=== PATIENT | female | born 1960 | race Caucasian/White ===

== ENCOUNTER 2017-02-03 08:56 | Emergency (ER) | payer BC ==
[2017-02-03] MEDS ORDERED: Sodium Chloride 0.9% 10 ML Syringe FLUSH PRN (09:22)
[2017-02-03] MEDS ORDERED: Ondansetron 4 MG/2 ML SDV IVPUSH ONE (09:31)
[2017-02-03] MEDS ORDERED: Sodium Chloride 0.9% 1,000 ML IV SCH (09:45)
--- NOTE | 2017-02-03 10:01 | EDM.PDOC ---
ED HPI GENERAL MEDICAL PROBLEM - General Chief Complaint: Chest Pain Stated Complaint: SHAKY/UPSET STOMACH Time Seen by Provider: 02/03/17 09:19 Source of Information: Reports: Patient, RN Notes Reviewed - History of Present Illness INITIAL COMMENTS - FREE TEXT/NARRATIVE: 56-year-old lady presents to ED with mild chest discomfort, nausea, generalized weakness and dizziness. Onset of these symptoms shortly after awakening this morning. He feels somewhat lightheaded and dizzy when standing. Tenderness to feel nauseated. There's been no vomiting. Tightness across her chest without radiation. She was out in the heat some yesterday morning and last evening. She was not out during the hottest part of the day. Does feel somewhat dry this morning. She does have history of hypothyroidism, acid reflux. She denies history for coronary artery disease hypertension or diabetes. There is heart trouble in her family. Right Chest Pain Score (Numeric/FACES): 1 - Related Data Allergies Allergy/AdvReac Type Severity Reaction Status Date / Time cat dander Allergy Sneezing Verified 02/03/17 09:15 Home Meds: Home Meds Biotin 10,000 mcg PO DAILY 05/23/14 [History] Multivitamin [Multi-Vitamin Daily] 1 tab PO DAILY 05/23/14 [History] Cholecalciferol (Vitamin D3) [Vitamin D3] 5,000 unit PO DAILY 07/06/15 [History] Cyanocobalamin/FA/Pyridoxine [Folbee] 1 tab PO MOWEFR 07/06/15 [History] Levothyroxine 75 mcg PO DAILY 07/06/15 [History] Sertraline [Zoloft] 50 mg PO DAILY 07/06/15 [History] Esomeprazole [NexIUM] 40 mg PO ACBREAKFAST 08/18/16 [History] Zolpidem [Ambien] 10 mg PO BEDTIME PRN 08/18/16 [History] Calcium Citrate/Vitamin D3 [Calcium Citrate + D] 600 mg PO DAILY 02/03/17 [ History] buPROPion [Wellbutrin XL] 150 mg PO DAILY 02/03/17 [History] Past Medical History HEENT History: Reports: Impaired Vision Other HEENT History: wears contacts. Cardiovascular History: Reports: High Cholesterol Other Cardiovascular History: not on med. 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 Psychiatric History: Reports: Depression Endocrine/Metabolic History: Reports: Hypothyroidism Hematologic History: Reports: Anemia, Iron Deficiency Dermatologic History: Reports: Eczema - Infectious Disease History Infectious Disease History: Reports: Chicken Pox, Measles, Mumps - Past Surgical History GI Surgical History: Reports: Bariatric Procedure Other GI Surgeries/Procedures: gastric bypass Social & Family History - Family History Family Medical History: Noncontributory - Tobacco Use Smoking Status *Q: Never Smoker Years of Tobacco use: 1 Packs/Tins Daily: 0.3 Second Hand Smoke Exposure: No - Caffeine Use Caffeine Use: Reports: None - Alcohol Use Days Per Week of Alcohol Use: 0 - Recreational Drug Use Recreational Drug Use: No ED ROS GENERAL - Review of Systems Review Of Systems: See Below Constitutional: Denies: Fever, Chills, Diaphoresis HEENT: Denies: Sinus Problem, Throat Pain, Vertigo, Vision Change Respiratory: Denies: Shortness of Breath Cardiovascular: Reports: Chest Pain (Slight tightness across her mid chest), Lightheadedness. Denies: Syncope GI/Abdominal: Reports: Nausea. Denies: Abdominal Pain, Diarrhea, Vomiting : Reports: No Symptoms Musculoskeletal: Denies: Neck Pain, Shoulder Pain, Arm Pain Skin: Reports: No Symptoms Neurological: Reports: Dizziness. Denies: Numbness, Tingling, Trouble Speaking , Difficulty Walking ED EXAM, GENERAL - Physical Exam Exam: See Below General Appearance: Alert, Mild Distress Eye Exam: Bilateral Eye: PERRL Throat/Mouth: Normal Inspection, Other Head: No: Facial Swelling (Oral mucosa mildly dry) Neck: Supple, Full Range of Motion Respiratory/Chest: No Respiratory Distress, Lungs Clear, Normal Breath Sounds Cardiovascular: Regular Rate, Rhythm GI/Abdominal: Soft, Non-Tender Back Exam: No: CVA Tenderness (L), CVA Tenderness (R) Extremities: Normal Inspection, Normal Range of Motion. No: Pedal Edema, Leg Pain Neurological: Alert, Oriented, No Motor/Sensory Deficits Skin Exam: Warm, Dry, Normal Color EKG INTERPRETATION EKG Date: 02/03/17 Rhythm: NSR [place]: Normal P-Wave: Present QRS: Normal ST-T: Normal Course - Vital Signs Last Recorded V/S: Last Vital Signs Temp 97.7 F 02/03/17 09:05 Pulse 62 02/03/17 09:05 Resp 16 02/03/17 09:05 BP 144/88 H 02/03/17 09:05 Pulse Ox 100 02/03/17 09:05 Orthostatic Blood Pressure [ 154/91 Standing] Orthostatic Blood Pressure [ 142/88 Sitting] Orthostatic Blood Pressure [ 144/88 Supine] - Orders/Labs/Meds Orders: Active Orders 24 hr Category Date Time Status EKG 12 Lead [EKG Documentation Completion] [] STAT Care 02/03/17 09:22 Active Peripheral IV Care [] . DIRECTED Care 02/03/17 09:23 Active Sodium Chloride 0.9% [Normal Saline] 1,000 ml Med 02/03/17 09:45 Active IV ONETIME Sodium Chloride 0.9% [Saline Flush] Med 02/03/17 09:22 Active 10 ml FLUSH ASDIRECTED PRN Peripheral IV Insertion Adult [OM.PC] Stat Oth 02/03/17 09:23 Ordered Medication Orders Sodium Chloride (Normal Saline) 1,000 mls @ 999 mls/hr IV ONETIME YEMI Last Admin: 02/03/17 09:53 Dose: 999 mls/hr Sodium Chloride (Saline Flush) 10 ml FLUSH ASDIRECTED PRN PRN Reason: Keep Vein Open Last Admin: 02/03/17 09:35 Dose: 10 ml Labs: Laboratory Tests 02/03/17 02/03/17 02/03/17 Range/Units 09:22 09:35 11:15 WBC 5.64 (3.98-10.04) K/mm3 RBC 4.59 (3.98-5.22) M/mm3 Hgb 13.3 (11.2-15.7) gm/L Hct 40.6 (34.1-44.9) % MCV 88.5 (79.4-94.8) fl MCH 29.0 (25.6-32.2) pg MCHC 32.8 (32.2-35.5) g/dl RDW Std Deviation 43.3 (36.4-46.3) fL Plt Count 328 (182-369) K/mm3 MPV 8.5 L (9.4-12.3) fl Neut % (Auto) 64.2 (34.0-71.1) % Lymph % (Auto) 22.9 (19.3-51.7) % [place] % (Auto) 9.9 (4.7-12.5) % Eos % (Auto) 2.1 (0.7-5.8) Baso % (Auto) 0.7 (0.1-1.2) % Neut # (Auto) 3.62 (1.56-6.13) K/mm3 Lymph # (Auto) 1.29 (1.18-3.74) K/mm3 [place] # (Auto) 0.56 H (0.24-0.36) K/mm3 Eos # (Auto) 0.12 (0.04-0.36) K/mm3 Baso # (Auto) 0.04 (0.01-0.08) K/mm3 Sodium 140 (136-145) mEq/L Potassium 3.9 (3.5-5.1) mEq/L Chloride 103 (98-107) mEq/L Carbon Dioxide 27 (21-32) mEq/L Anion Gap 13.9 (5-15) BUN 18 (7-18) mg/dL Creatinine 0.9 (0.55-1.02) mg/dL Est Cr Clr Drug Dosing 71.25 mL/min Estimated GFR (MDRD) > 60 (>60) mL/min BUN/Creatinine Ratio 20.0 H (14-18) Glucose 99 (74-106) mg/dL Calcium 9.4 (8.5-10.1) mg/dL Total Bilirubin 0.5 (0.2-1.0) mg/dL AST 28 (15-37) U/L ALT 45 (14-59) U/L Alkaline Phosphatase 88 (46-116) U/L Troponin I < 0.017 < 0.017 (0.00-0.056) ng/mL Total Protein 7.1 (6.4-8.2) g/dl Albumin 3.8 (3.4-5.0) g/dl Globulin 3.3 gm/dL Albumin/Globulin Ratio 1.2 (1-2) Meds: Medications Generic Name Dose Route Start Last Admin Trade Name Freq PRN Reason Stop Dose Admin Sodium Chloride 1,000 mls @ 999 mls/hr 02/03/17 09:45 02/03/17 09:53 Normal Saline IV 999 mls/hr ONETIME YEMI Administration Sodium Chloride 10 ml 02/03/17 09:22 02/03/17 09:35 Saline Flush FLUSH 10 ml ASDIRECTED PRN Administration Keep Vein Open Discontinued Medications Generic Name Dose Route Start Last Admin Trade Name Nikki PRN Reason Stop Dose Admin Ondansetron HCl 4 mg 02/03/17 09:31 02/03/17 09:53 Zofran IVPUSH 02/03/17 09:32 4 mg ONETIME ONE Administration - Re-Assessments/Exams Free Text/Narrative Re-Assessment/Exam: 02/03/17 12:59 First troponin did come back negative. She was feeling much better after a liter of IV fluid, some Zofran and some time. We did do a second 2 hour troponin just to be safe and that also did come back negative. Her EKG did not show any acute findings. He did have occasional PVCs on a radiographer cardiac catheterization. She states she does have history of "irregular heartbeat" On further Questioning her further she states the chest pain she had is very minimal. Or the nausea dizziness and just not feeling well and then the mild chest discomfort that made her come in. Discharge instructions as documented Departure - Departure Time of Disposition: 12:09 Disposition: Home, Self-Care 01 Condition: Fair Clinical Impression: Atypical chest pain, Dizziness Instructions: Nonspecific Chest Pain, [id number], Dizziness Referrals: Coco Toscano MD [Primary Care Provider] - Forms: ED Department Discharge Additional Instructions: Rest, clear liquids recommended for the next 1-2 hours, then advance diet carefully as tolerated, followup clinic as needed, return to ED if symptoms worsening in any way - My Orders Last 24 Hours: My Active Orders 02/03/17 09:22 EKG 12 Lead [EKG Documentation Completion] [RC] STAT Sodium Chloride 0.9% [Saline Flush] 10 ml FLUSH ASDIRECTED PRN 02/03/17 09:23 Peripheral IV Care [RC] . DIRECTED Peripheral IV Insertion Adult [OM.PC] Stat 02/03/17 09:45 Sodium Chloride 0.9% [Normal Saline] 1,000 ml IV ONETIME - Assessment/Plan Last 24 Hours: My Active Orders 02/03/17 09:22 EKG 12 Lead [EKG Documentation Completion] [RC] STAT Sodium Chloride 0.9% [Saline Flush] 10 ml FLUSH ASDIRECTED PRN 02/03/17 09:23 Peripheral IV Care [RC] . DIRECTED Peripheral IV Insertion Adult [OM.PC] Stat 02/03/17 09:45 Sodium Chloride 0.9% [Normal Saline] 1,000 ml IV ONETIME
[2017-02-03 13:01] VITALS: BP 117/69
== END 2017-02-03 12:35 | disposition home or self-care (01) ==
LOC: JD.ED 08:56
DX: R07.89 Other chest pain (principal); R42 Dizziness and giddiness; E78.00 Pure hypercholesterolemia, unspecified; K21.9 Gastro-esophageal reflux disease without esophagitis; F32.9 Major depressive disorder, single episode, unspecified; E03.9 Hypothyroidism, unspecified; Z86.2 Personal history of diseases of the blood and blood-forming organs and certain disorders involving the immune mechanism; Z79.899 Other long term (current) drug therapy
CPT/HCPCS: 36415; 80053; 84484; 85025; 93005; 96361; 96374; 99285; J2405; J7040; J7050; 99284

== ENCOUNTER 2018-04-20 20:12 | Emergency (ER) | payer BC ==
[2018-04-20 20:21] VITALS: BP 150/99
[2018-04-20] MEDS ORDERED: Ondansetron 4 MG/2 ML SDV IVPUSH ONE (20:46)
[2018-04-20] MEDS ORDERED: HYDROmorphone 0.5 MG/0.5 ML SYRINGE IVPUSH ONE ×2 (20:46→21:42)
[2018-04-20] MEDS ORDERED: Sodium Chloride 0.9% 1,000 ML IV ONE (20:46)
--- NOTE | 2018-04-20 20:56 | EDM.PDOC ---
ED HPI GENERAL MEDICAL PROBLEM - General Chief Complaint: Abdominal Pain Stated Complaint: LOWER ABDOMINAL PAIN Time Seen by Provider: 04/20/18 20:36 Source of Information: Reports: Patient History Limitations: Reports: No Limitations - History of Present Illness INITIAL COMMENTS - FREE TEXT/NARRATIVE: Patient is a 57-year-old female who presents to the ED complaining of right lower quadrant abdominal pain that started approximately 3:00 today. Initially she thought this was related to gas. Took 2 Gas-X pills and tylenol with no relief. Pain came back at approximately 5:00 this afternoon and she took 2 Dulcolax tabs thinking she maybe constipated. Over the past few hours the pain has worsened. Pain is described as being sharp, localized with no radiation. She is mildly nauseated. States pain increases with sitting. Relief with standing. She does not feel bloated. She's had a bowel movement today described as formed soft with no blood present. Denies any increased flatulence. There is no increased pain with urination. No increased frequency, decrease amount. No history kidney stones. She has no history constipation. She still has her appendix in place. Only surgery she's had is tubal ligation. Patient last ate at 5:00. Right Lower Abdomen Pain Score (Numeric/FACES): 9 - Related Data Allergies Allergy/AdvReac Type Severity Reaction Status Date / Time cat dander Allergy Sneezing Verified 02/03/17 09:15 Home Meds: Home Meds Cholecalciferol (Vitamin D3) [Vitamin D3] 5,000 unit PO DAILY 07/06/15 [History] Cyanocobalamin/Folic AC/Vit B6 [Folbee] 800 mcg PO DAILY 07/06/15 [History] Levothyroxine 88 mcg PO DAILY 07/06/15 [History] Esomeprazole [NexIUM] 40 mg PO ACBREAKFAST 08/18/16 [History] Zolpidem [Ambien] 10 mg PO BEDTIME PRN 08/18/16 [History] Calcium Citrate/Vitamin D3 [Calcium Citrate + D] 600 mg PO DAILY 02/03/17 [ History] Iron 1 tab PO DAILY 04/20/18 [History] Tamsulosin HCl [Flomax] 0.4 mg PO QAM #7 cap.er.24h 04/20/18 [Rx] Vitamin B Complex 1 vaporole PO MOWEFR 04/20/18 [History] Past Medical History HEENT History: Reports: Impaired Vision Other HEENT History: wears contacts. Cardiovascular History: Reports: High Cholesterol Other Cardiovascular History: not on med. 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 Psychiatric History: Reports: Depression Endocrine/Metabolic History: Reports: Hypothyroidism Hematologic History: Reports: Anemia, Iron Deficiency Dermatologic History: Reports: Eczema - Infectious Disease History Infectious Disease History: Reports: Chicken Pox, Measles, Mumps - Past Surgical History GI Surgical History: Reports: Bariatric Procedure Other GI Surgeries/Procedures: gastric bypass Social & Family History - Family History Family Medical History: Noncontributory - Tobacco Use Smoking Status *Q: Never Smoker - Caffeine Use Caffeine Use: Reports: Coffee, Tea - Recreational Drug Use Recreational Drug Use: No ED ROS GENERAL - Review of Systems Review Of Systems: See Below Constitutional: Reports: Decreased Appetite. Denies: Fever, Chills HEENT: Reports: No Symptoms Respiratory: Reports: No Symptoms Cardiovascular: Reports: No Symptoms GI/Abdominal: Reports: Abdominal Pain, Decreased Appetite, Nausea. Denies: Black Stool, Bloody Stool, Constipation, Diarrhea, Distension, Flatus, Hematemesis, Vomiting Musculoskeletal: Reports: No Symptoms Skin: Reports: No Symptoms Neurological: Reports: No Symptoms ED EXAM, GI/ABD - Physical Exam Exam: See Below Exam Limited By: No Limitations General Appearance: Alert, WD/WN, Mild Distress Ears: Hearing Grossly Normal Nose: Normal Inspection Throat/Mouth: Normal Voice, No Airway Compromise Neck: Normal Inspection, Supple Respiratory/Chest: No Respiratory Distress, Lungs Clear, Normal Breath Sounds, No Accessory Muscle Use, Chest Non-Tender Cardiovascular: Normal Peripheral Pulses, Regular Rate, Rhythm, No Murmur GI/Abdominal Exam: Normal Bowel Sounds, No Organomegaly, No Distention, Tender ( McBurney's point), Abnormal Bowel Sounds Back Exam: Normal Inspection. No: CVA Tenderness (L), CVA Tenderness (R) Extremities: Normal Inspection Neurological: Alert, Oriented, CN II-XII Intact, Normal Cognition, No Motor/ Sensory Deficits Psychiatric: Normal Affect, Normal Mood Skin Exam: Warm, Dry, Intact, Normal Color, No Rash Course - Vital Signs Last Recorded V/S: Last Vital Signs Temp 98.6 F 04/20/18 20:19 Pulse 61 04/20/18 20:19 Resp 20 04/20/18 20:19 BP 150/99 H 04/20/18 20:19 Pulse Ox 100 04/20/18 20:19 - Orders/Labs/Meds Orders: Active Orders 24 hr Category Date Time Status Abdomen Pelvis w Cont [CT] Stat Exams 04/20/18 20:46 Taken CULTURE URINE [RM] Stat Lab 04/20/18 20:55 Received Sodium Chloride 0.9% [Normal Saline] 1,000 ml Med 04/20/18 20:46 Active IV ONETIME Tamsulosin [Flomax] Med 04/20/18 23:13 Once 0.4 mg PO ONETIME ONE Medication Orders Sodium Chloride (Normal Saline) 1,000 mls @ 250 mls/hr IV ONETIME ONE Stop: 04/21/18 00:45 Last Admin: 04/20/18 21:01 Dose: 250 mls/hr Labs: Laboratory Tests 04/20/18 04/20/18 04/20/18 Range/Units 20:06 20:06 20:55 WBC 9.10 (3.98-10.04) K/mm3 RBC 4.49 (3.98-5.22) M/mm3 Hgb 14.2 (11.2-15.7) gm/L Hct 42.2 (34.1-44.9) % MCV 94.0 (79.4-94.8) fl MCH 31.6 (25.6-32.2) pg MCHC 33.6 (32.2-35.5) g/dl RDW Std Deviation 41.3 (36.4-46.3) fL Plt Count 332 (182-369) K/mm3 MPV 9.3 L (9.4-12.3) fl Neutrophils % (Manual) 39 L (40-60) % Band Neutrophils % 0 (0-10) % Lymphocytes % (Manual) 58 H (20-40) % Atypical Lymphs % 0 % Monocytes % (Manual) 3 (2-10) % Eosinophils % (Manual) 0 L (0.7-5.8) % Basophils % (Manual) 0 L (0.1-1.2) Toxic Granulation Few Platelet Estimate Adequate Plt Morphology Comment Normal RBC Morph Comment Normal Sodium 138 (136-145) mEq/L Potassium 4.0 (3.5-5.1) mEq/L Chloride 104 (98-107) mEq/L Carbon Dioxide 22 (21-32) mEq/L Anion Gap 16.0 H (5-15) BUN 8 (7-18) mg/dL Creatinine 0.7 (0.55-1.02) mg/dL Est Cr Clr Drug Dosing 90.53 mL/min Estimated GFR (MDRD) > 60 (>60) mL/min BUN/Creatinine Ratio 11.4 L (14-18) Glucose 108 H (74-106) mg/dL Calcium 8.7 (8.5-10.1) mg/dL Total Bilirubin 0.1 L (0.2-1.0) mg/dL AST 30 (15-37) U/L ALT 31 (14-59) U/L Alkaline Phosphatase 67 (46-116) U/L C-Reactive Protein < 0.2 (<1.0) mg/dL Total Protein 8.0 (6.4-8.2) g/dl Albumin 4.0 (3.4-5.0) g/dl Globulin 4.0 gm/dL Albumin/Globulin Ratio 1.0 (1-2) Urine Color Yellow (Yellow) Urine Appearance Slt cloudy H (Clear) Urine pH 5.5 (5.0-8.0) Ur Specific [place] > or = 1.030 (1.005-1.030) Urine Protein 1+ H (Negative) Urine Glucose (UA) Negative (Negative) Urine Ketones 2+ H (Negative) Urine Occult Blood 2+ H (Negative) Urine Nitrite Negative (Negative) Urine Bilirubin 1+ H (Negative) Urine Urobilinogen 0.2 (0.2-1.0) Ur Leukocyte Esterase Negative (Negative) Urine RBC 20-30 H (0-5) /hpf Urine WBC 10-20 H (0-5) /hpf Ur Epithelial Cells 0-5 (0-5) /hpf Urine Bacteria Rare (FEW) /hpf Hyaline Casts 0-5 (0-5) /lpf Waxy Casts 0-5 (0-5) /lpf Broad Casts Few Urine Mucus Many H (FEW) /hpf Meds: Medications Generic Name Dose Route Start Last Admin Trade Name Freq PRN Reason Stop Dose Admin Sodium Chloride 1,000 mls @ 250 mls/hr 04/20/18 20:46 04/20/18 21:01 Normal Saline IV 04/21/18 00:45 250 mls/hr ONETIME ONE Administration Discontinued Medications Generic Name Dose Route Start Last Admin Trade Name Freq PRN Reason Stop Dose Admin Hydromorphone HCl 0.5 mg 04/20/18 20:46 04/20/18 21:01 Dilaudid IVPUSH 04/20/18 20:47 0.5 mg ONETIME ONE Administration Hydromorphone HCl 0.5 mg 04/20/18 21:42 04/20/18 21:50 Dilaudid IVPUSH 04/20/18 21:43 0.5 mg ONETIME ONE Administration Iopamidol 125 ml 04/20/18 22:29 04/20/18 22:31 Isovue-300 (61%) IVPUSH 04/20/18 22:30 125 ml ONETIME ONE Administration Ondansetron HCl 4 mg 04/20/18 20:46 04/20/18 21:01 Zofran IVPUSH 04/20/18 20:47 4 mg ONETIME ONE Administration - Re-Assessments/Exams Free Text/Narrative Re-Assessment/Exam: IV started with normal saline, Zofran, and Dilaudid. Initial labs and studies include: CBC, chem 14, CRP, UA, and CT the abdomen and pelvis with oral and IV contrast. Oral contrast will be started. 04/20/18 21:43 Per nursing staff patients pain has come back. She stated the pain came back and the nausea followed. I will treat pain with dilaudid 0.5mg IVP. Labs reviewed: CBC essentially normal. She panel essentially normal as well. CRP normal. UA slightly cloudy, 1+ protein, ketones 2+, occult blood 2+, bilirubin 1+, urine rbc's 20/30, urine wbc's 20-30, negative nitrates, negative leukocyte Estrace, urine mucous many. ABDOMEN and PELVIS: Intraperitoneal space: Normal. No free air. No significant fluid collection. Bones/joints: No acute fracture. No dislocation. Soft tissues: Unremarkable. Vasculature: Normal. No abdominal aortic aneurysm. Lymph nodes: Normal. No enlarged lymph nodes. IMPRESSION: 1. 7 mm stone in the distal right ureter causing hydronephrosis as well as hydroureter on the right. The stone lies approximately 3 cm from the right ureterovesical junction 2. Normal appendix right lower quadrant 3. Probable left peripelvic cyst noted. 4. 2 mm nonobstructing stone upper pole left kidney 5. 2 mm nonobstructing stone lower pole right kidney Flomax 0.4 mg by mouth ordered 1. Urine strainer has been ordered as well. [id number] patient's pain is well controlled. I did discuss CT findings with the patient. Patient will call make an appointment to see urologist of her choice this coming week for reevaluation. I suspect she will not past the 7 mm stone. Discharge instructions as documented. The patient remained hemodynamically stable while under my care in the E.D. I discussed the concerning symptoms for which to returnto the E.D. with the patient/family. The patient/family verbalized understanding. All questions were answered. Departure - Departure Time of Disposition: 23:19 Disposition: Home, Self-Care 01 Condition: Good Clinical Impression: Kidney stone on right side - Discharge Information Prescriptions: Tamsulosin HCl [Flomax] 0.4 mg PO QAM #7 cap.er.24h Instructions: Kidney Stones, [id number], Pain Medicine Instructions, Easy-to- Read, Dietary Guidelines to Help Prevent Kidney Stones Referrals: Coco Toscano MD [Primary Care Provider] - Forms: ED Department Discharge Additional Instructions: As discussed UA with large kidney stone within the right ureter that may be difficult to pass. Please push the fluids. Strain all urine voids. Make an appointment with a urologist of your choice to be evaluated this week. For pain take ibuprofen 600 mg every 6 hours with plenty of water and food. For severe pain take Percocet 1 tab every 6 hours. For nausea take Zofran 1 tablet every 6 hours as needed. Take Flomax 1 tab every day. Please return back to the ED if he developed any new or worsening symptoms. for nausea and vomiting. - My Orders Last 24 Hours: My Active Orders 04/20/18 20:46 Abdomen Pelvis w Cont [CT] Stat Sodium Chloride 0.9% [Normal Saline] 1,000 ml IV ONETIME 04/20/18 20:55 CULTURE URINE [RM] Stat 04/20/18 23:13 Tamsulosin [Flomax] 0.4 mg PO ONETIME ONE - Assessment/Plan Last 24 Hours: My Active Orders 04/20/18 20:46 Abdomen Pelvis w Cont [CT] Stat Sodium Chloride 0.9% [Normal Saline] 1,000 ml IV ONETIME 04/20/18 20:55 CULTURE URINE [RM] Stat 04/20/18 23:13 Tamsulosin [Flomax] 0.4 mg PO ONETIME ONE
[2018-04-20] MEDS ORDERED: Iopamidol 612 MG/ML 150 ML Bottle IVPUSH ONE (22:29)
[2018-04-20] MEDS ORDERED: Tamsulosin 0.4 MG Cap.ER PO ONE (23:13)
--- NOTE | 2018-04-21 07:13 | CT ---
CT abdomen and pelvis Technique: Multiple axial sections were obtained from above the dome of the diaphragm inferiorly through the pubic symphysis. Intravenous and oral contrast was utilized. Comparison: Prior abdominal ultrasound of 10/04/11. Findings: Dilated right ureter is seen. This finding is caused by a small obstructing stone within the distal right ureter measuring approximately 2 mm. This stone is located slightly proximal to the UVJ. No left-sided ureteral calculi are seen. Very small nonobstructing stone measuring less than 2 mm is seen within the inferior right kidney and superior left kidney. Left kidney shows central cystic change which is felt compatible with incidental parapelvic cyst. Visualized lung bases are clear. Liver shows a low-density lesion within the left lobe measuring 2.0 cm compatible with a cyst that was seen on prior ultrasound exam. Spleen appears within normal limits. Adrenal glands show no nodule. Pancreas is within normal limits. Gallbladder contains no calcified gallstones. Aorta shows no aneurysm. No retroperitoneal adenopathy is seen. Appendix is seen and is normal in size. No pelvic mass or adenopathy is seen. No inflammatory change is seen. Delayed images show contrast within a nondilated left ureter with no contrast seen within the distal right ureter. Bone window settings were reviewed which show severe disc space narrowing at L5-S1 and L4-L5 with vacuum disc phenomena. Degenerative apophyseal change also noted at both these levels. Fat-containing small umbilical hernia is noted. Impression: 1. 2 mm obstructing stone causing proximal hydronephrosis on the right side. Obstructing stone occurs within the distal right ureter located slightly proximal to the UVJ. 2. Small nonobstructing calculus within each kidney. 3. Other incidental findings as noted above. Appendix is seen and is normal. Diagnostic code #3 Agree with preliminary report issued by [facility] ([facility] preliminary report dictated on 04/21/18, 12:08 AM Central Time)
== END 2018-04-20 23:40 | disposition home or self-care (01) ==
LOC: JD.ED 20:12
DX: N13.2 Hydronephrosis with renal and ureteral calculous obstruction (principal); E78.00 Pure hypercholesterolemia, unspecified; K21.9 Gastro-esophageal reflux disease without esophagitis; Z91.09 Other allergy status, other than to drugs and biological substances; Z79.899 Other long term (current) drug therapy
CPT/HCPCS: 36415; 74177; 80053; 81001; 85007; 85027; 86140; 87086; 96361; 96374; 96375; 96376; 99284; A9270; J1170; J2405; J7040; Q9967

== ENCOUNTER 2021-05-08 03:49 | Emergency (ER) | payer BC ==
[2021-05-08 04:00] VITALS: BP 130/85; PULSE 80
[2021-05-08] MEDS ORDERED: Alum Hydrox/Mag Hydrox/Simeth 30 ML, Lidocaine 2% 15 ML PO ONE ×2 (04:13)
[2021-05-08] MEDS ORDERED: Famotidine 20 MG Tab PO ONE (04:13)
--- NOTE | 2021-05-08 04:17 | EDM.PDOC ---
ED HPI GENERAL MEDICAL PROBLEM - General Chief Complaint: Chest Pain Stated Complaint: CHEST PAIN/PRESSURE Time Seen by Provider: 05/08/21 04:14 Source of Information: Reports: Patient History Limitations: Reports: No Limitations - History of Present Illness INITIAL COMMENTS - FREE TEXT/NARRATIVE: Patient is a 60-year-old female with a history of acid reflux presenting with chief complaint of chest pain. Patient reports several day history of this chest pain. Patient states that this started between her shoulder blades and now is primarily in her chest. She states she felt a sharp stabbing sensation. She states she has been doing yard work today and that seems to have made the symptoms better. Denies any associated dizziness, fevers, chills, cough, nausea, vomiting, shortness of breath. No past history of diabetes, smoking, prolonged travel, recent surgery, DVT/PE. Chest Pain Score (Numeric/FACES): 7 - Related Data Allergies Allergy/AdvReac Type Severity Reaction Status Date / Time cat dander Allergy Sneezing Verified 05/08/21 04:00 Home Meds: Home Meds Cholecalciferol (Vitamin D3) [Vitamin D3] 125 mcg PO DAILY 07/06/15 [History] Levothyroxine 88 mcg PO DAILY 07/06/15 [History] Esomeprazole [NexIUM] 40 mg PO ACBREAKFAST 08/18/16 [History] Zolpidem [Ambien] 10 mg PO BEDTIME PRN 08/18/16 [History] Iron 65 mg PO DAILY 04/20/18 [History] Calcium Carbonate [Calcium] 1,200 mg PO DAILY 05/08/21 [History] FLUoxetine [PROzac] 40 mg PO DAILY 05/08/21 [History] Folic Acid 1 mg PO DAILY 05/08/21 [History] Folic Acid/Vit B Complex and C [Super B Complex Tablet] 1 tab PO DAILY 05/08/21 [History] Multivitamin 1 each PO DAILY 05/08/21 [History] Past Medical History HEENT History: Reports: Impaired Vision Other HEENT History: wears contacts. Cardiovascular History: Reports: High Cholesterol Other Cardiovascular History: not on med. Gastrointestinal History: Reports: GERD RESOURCE FORESTER History: Reports: Other RESOURCE FORESTER History: Tubes tied in 1992 Musculoskeletal History: Reports: Fracture, Other (See Below) Other Musculoskeletal History: states is in need of knee replacement. Psychiatric History: Reports: Depression Endocrine/Metabolic History: Reports: Hypothyroidism Hematologic History: Reports: Anemia, Iron Deficiency Dermatologic History: Reports: Eczema - Infectious Disease History Infectious Disease History: Reports: Chicken Pox, Measles, Mumps - Past Surgical History GI Surgical History: Reports: Bariatric Procedure Other GI Surgeries/Procedures: gastric bypass Social & Family History - Family History Family Medical History: No Pertinent Family History - Caffeine Use Caffeine Use: Reports: Coffee, Tea ED ROS GENERAL - Review of Systems Review Of Systems: See Below Free Text/Narrative/Comment: In addition to that documented in the HPI above, the additional ROS was obtained: Constitutional: Denies fevers or chills Eyes: Denies vision changes ENMT: Denies sore throat CV: Per HPI Resp: Denies SOB GI: Denies vomiting or diarrhea : Denies painful urination MSK: Denies recent trauma Skin: Denies new rashes Neuro: Denies new numbness or tingling or weakness Endocrine: Denies unexpected weight loss Heme: Denies bleeding disorders ED EXAM, GENERAL - Physical Exam Exam: See Below Free Text/Narrative:: I have reviewed the triage vital signs Const: Well nourished, well developed, appears stated age Eyes: Pupils Equal and reactive to light bilaterally, no conjunctival injection HENT: No signs of trauma or swelling, Neck supple without meningismus CV: Regular Rate Rhythm, Warm, well-perfused extremities RESP: Unlabored respiratory effort GI: soft, non-tender, non-distended, no masses MSK: No gross deformities appreciated Skin: Warm, dry. No rashes Neuro: Alert, hospice/home health aide II-XII grossly intact. Sensation and motor function of extremities grossly intact. Psych: Appropriate mood and affect. Course - Vital Signs Last Recorded V/S: Last Vital Signs Temp 36.6 C 05/08/21 03:58 Pulse 80 05/08/21 03:58 Resp 17 05/08/21 03:58 BP 130/85 05/08/21 03:58 Pulse Ox 97 05/08/21 03:58 - Orders/Labs/Meds Orders: Active Orders 24 hr Category Date Time Status Chest 1V Frontal [CR] Stat Exams 05/08/21 04:13 Taken EKG 12 Lead [EK] Stat Ther 05/08/21 04:19 Ordered Labs: Laboratory Tests 05/08/21 05/08/21 05/08/21 Range/Units 04:25 04:25 04:25 WBC 4.23 (3.98-10.04) K/mm3 RBC 4.42 (3.98-5.22) M/mm3 Hgb 12.1 D (11.2-15.7) gm/dl Hct 37.4 (34.1-44.9) % MCV 84.6 D (79.4-94.8) fl MCH 27.4 (25.6-32.2) pg MCHC 32.4 (32.2-35.5) g/dl RDW Std Deviation 45.6 (36.4-46.3) fL Plt Count 302 (182-369) K/mm3 MPV 8.7 L (9.4-12.3) fl Neut % (Auto) 44.4 (34.0-71.1) % Lymph % (Auto) 45.9 (19.3-51.7) % Early % (Auto) 7.3 (4.7-12.5) % Eos % (Auto) 1.9 (0.7-5.8) Baso % (Auto) 0.5 (0.1-1.2) % Neut # (Auto) 1.88 (1.56-6.13) K/mm3 Lymph # (Auto) 1.94 (1.18-3.74) K/mm3 Early # (Auto) 0.31 (0.24-0.36) K/mm3 Eos # (Auto) 0.08 (0.04-0.36) K/mm3 Baso # (Auto) 0.02 (0.01-0.08) K/mm3 PT 10.5 (9.7-12.0) SECONDS INR 0.94 Sodium 140 (136-145) mEq/L Potassium 3.4 L (3.5-5.1) mEq/L Chloride 106 (98-107) mEq/L Carbon Dioxide 24 (21-32) mEq/L Anion Gap 13.4 (5-15) BUN 24 H (7-18) mg/dL Creatinine 0.7 (0.55-1.02) mg/dL Est Cr Clr Drug Dosing 87.29 mL/min Estimated GFR (MDRD) > 60 (>60) mL/min BUN/Creatinine Ratio 34.3 H (14-18) Glucose 118 H (70-99) mg/dL Calcium 8.8 (8.5-10.1) mg/dL Total Bilirubin 0.4 (0.2-1.0) mg/dL AST 19 (15-37) U/L ALT 23 (14-59) U/L Alkaline Phosphatase 89 (46-116) U/L Troponin I < 0.017 (0.00-0.056) ng/mL Total Protein 6.4 (6.4-8.2) g/dl Albumin 3.5 (3.4-5.0) g/dl Globulin 2.9 gm/dL Albumin/Globulin Ratio 1.2 (1-2) Meds: Medications Discontinued Medications Generic Name Dose Route Start Last Admin Trade Name Freq PRN Reason Stop Dose Admin Al Hydroxide/Mg Hydroxide 30 0 ml 05/08/21 04:13 05/08/21 04:29 ml/ Lidocaine HCl 15 ml PO 05/08/21 04:14 45 ml ONETIME ONE Administration Famotidine 20 mg 05/08/21 04:13 05/08/21 04:29 Famotidine 20 Mg Tab PO 05/08/21 04:14 20 mg ONETIME ONE Administration Departure - Departure Time of Disposition: 05:06 Disposition: Home, Self-Care 01 Clinical Impression: Atypical chest pain Referrals: Coco Toscano MD [Primary Care Provider] - Forms: ED Department Discharge Sepsis Event Note (ED) - Focused Exam Vital Signs: Vital Signs Temp Pulse Resp BP Pulse Ox 05/08/21 03:58 36.6 C 80 17 130/85 97 - My Orders Last 24 Hours: My Active Orders 05/08/21 04:13 Chest 1V Frontal [CR] Stat 05/08/21 04:19 EKG 12 Lead [EK] Stat - Assessment/Plan Last 24 Hours: My Active Orders 05/08/21 04:13 Chest 1V Frontal [CR] Stat 05/08/21 04:19 EKG 12 Lead [EK] Stat Assessment:: Patient is a 60-year-old female presenting to the emergency room with a chief complaint of chest pain. Patient had unremarkable ER course. No ischemic changes noted on EKG. Frontal diagnosis considered for this patient include PE, aortic dissection, ACS. Patient is a low risk heart score and negative troponin. Patient received GI cocktail and felt significantly better. No PE risk factors. No evidence of widened mediastinum on x-ray. Patient feels better and wished to go home. No questions or concerns at this time. Will follow up with primary care this week several days.
--- NOTE | 2021-05-08 07:24 | CR ---
Chest: Portable view of the chest was obtained. Comparison: Prior chest x-ray of 05/23/14. Heart size and mediastinum are within normal limits. Lungs are clear with no acute parenchymal change. Bony structures show nothing acute. Impression: 1. Nothing acute is seen on portable chest x-ray. 2. No change is seen from prior chest x-ray. Diagnostic code #1
== END 2021-05-08 05:14 | disposition home or self-care (01) ==
LOC: JD.ED 03:49
DX: R07.89 Other chest pain (principal); K21.9 Gastro-esophageal reflux disease without esophagitis; E03.9 Hypothyroidism, unspecified; D50.9 Iron deficiency anemia, unspecified; Z91.048 Other nonmedicinal substance allergy status; Z79.899 Other long term (current) drug therapy
CPT/HCPCS: 36415; 71045; 80053; 84484; 85025; 85610; 93005; 99285; A9270

== ENCOUNTER → 2021-05-11 | Day surgery (SDC) | payer BC ==
--- NOTE | 2021-05-10 08:55 | PCM.PREANE ---
Preanesthetic Assessment - Procedure Proposed Procedure: Right TKA and Left knee steroid injection - Anesthesia/Transfusion/Family Hx Anesthesia History: Prior Anesthesia Without Reaction Family History of Anesthesia Reaction: No Transfusion History: No Prior Transfusion(s) Intubation History: Unknown - Review of Systems Pulmonary: No Symptoms (quit smokin, ETOH: socially) Cardiovascular: No Symptoms (Elevated cholesterol), Palpitations Gastrointestinal: No Symptoms (GERD/History of gastic bypass 2011.) Neurological: No Symptoms, Headache (history of migraines) Other: Reports: Easy Bruising, Thyroid Problems (hypothyroid), Depression, Anxiety - Physical Assessment NPO Status Date: 05/10/21 NPO Status Time: 21:00 Vital Signs: HR: 63 Sat: 98% Temp: 98.2 B/P: 125/81 Resp: 16 Height: 1.73 m Weight: 80 kg ASA Class: 2 Mental Status: Alert & Oriented x3 Airway Class: Mallampati = 2 Dentition: Reports: Normal Dentition, Caries Thyro-Mental Finger Breadths: 3 Mouth Opening Finger Breadths: 3 ROM/Head Extension: Full Lungs: Clear to Auscultation, Normal Respiratory Effort Cardiovascular: Regular Rate, Regular Rhythm - Lab Values: All labs reviewed and noted and within acceptable ranges to proceed with scheduled procedure. - Imaging/EKG Impressions: EKG: SR rate= 61, prolonged AMANDA CXR: negative - Allergies Allergies/Adverse Reactions: Allergies Allergy/AdvReac Type Severity Reaction Status Date / Time cat dander Allergy Sneezing Verified 05/10/21 16:52 [place] wort Allergy Cannot Verified 05/10/21 16:52 Remember - Anesthesia Plan Pre-Op Medication Ordered: None, Other (0857: preoperative oral pain meds (lyrica, oxycontin, tylenol)) - Acknowledgements Anesthesia Type Planned: Spinal (Right adductor canal block under US guidance for post operative pain control requested by Dr. Brito.) Pt an Appropriate Candidate for the Planned Anesthesia: Yes Alternatives and Risks of Anesthesia Discussed w Pt/Guardian: Yes Pt/Guardian Understands and Agrees with Anesthesia Plan: Yes PreAnesthesia Questionnaire HEENT History: Reports: Impaired Vision Other HEENT History: wears contacts. Cardiovascular History: Reports: High Cholesterol Other Cardiovascular History: not on med. Gastrointestinal History: Reports: GERD PHYSIOTHERAPIST'S ASSISTANT History: Reports: Other OB/BYN History: Tubes tied in 1992 Musculoskeletal History: Reports: Fracture, Other (See Below) Other Musculoskeletal History: states is in need of knee replacement. Psychiatric History: Reports: Depression Endocrine/Metabolic History: Reports: Hypothyroidism Hematologic History: Reports: Anemia, Iron Deficiency Dermatologic History: Reports: Eczema - Infectious Disease History Infectious Disease History: Reports: Chicken Pox, Measles, Mumps - Past Surgical History GI Surgical History: Reports: Bariatric Procedure Other GI Surgeries/Procedures: gastric bypass - HOME MEDS Home Medications: Home Meds Cholecalciferol (Vitamin D3) [Vitamin D3] 125 mcg PO DAILY 07/06/15 [History] Esomeprazole [NexIUM] 40 mg PO ACBREAKFAST 08/18/16 [History] Zolpidem [Ambien] 10 mg PO BEDTIME PRN 08/18/16 [History] Iron 65 mg PO DAILY 04/20/18 [History] Calcium Carbonate [Calcium] 1,200 mg PO DAILY 05/08/21 [History] FLUoxetine [PROzac] 40 mg PO DAILY 05/08/21 [History] Acetaminophen [Tylenol Extra Strength] 1,000 mg PO Q6H PRN 05/10/21 [History] Cyclobenzaprine [Flexeril] 10 mg PO BID PRN #20 tab 05/10/21 [Rx] Fluticasone Propionate [Flonase] 1 dose NASBOTH DAILY 05/10/21 [History] Folic Acid 0.8 mg PO DAILY 05/10/21 [History] Multivitamin 1 tab PO DAILY 05/10/21 [History] Rivaroxaban [Xarelto] 10 mg PO DAILY #30 tab 05/10/21 [Rx] Sertraline [Zoloft] 50 mg PO DAILY 05/10/21 [History] Vitamin B Complex [B Complex] 1 tab PO MOWEFR 05/10/21 [History] oxyCODONE 5 - 10 mg PO Q4H PRN #40 tab 05/10/21 [Rx] - CURRENT (IN HOUSE) MEDS Current Meds: Current Medications Morphine Sulfate 8 mg/Epinephrine HCl 0.3 mg/Cefuroxime Sodium 750 mg/Ketorolac Tromethamine 30 mg/Sodium Chloride 7.9 ml 0 mg .XX ASDIRECTED PRN PRN Reason: Pain Stop: 05/11/21 18:00 Lactated Ringer's (Ringers, Lactated) 1,000 mls @ 125 mls/hr IV ASDIRECTED YEMI Stop: 05/11/21 23:00 Lidocaine/Sodium Bicarbonate (Lidocaine 1%/Sod Bicarbonate In Ns 8.4% 1 Ml Syringe) 0.25 ml IDERM ONETIME PRN PRN Reason: Prior to IV Start Stop: 05/11/21 18:00 Sodium Chloride (Sodium Chloride 0.9% 10 Ml Syringe) 10 ml FLUSH ASDIRECTED PRN PRN Reason: Keep Vein Open Stop: 05/11/21 18:00
[~2021-05-11] MED LIST: Acetaminophen 325 MG Tab PO SCH; Bupivacaine 0.25% 10 ML SDV ONE; EPINEPHrine 1 MG/ML SDV ONE; Lactated Ringers 1,000 ML IV SCH; Lidocaine 1% 4 ML ONE; Lidocaine 1%/Sod Bicarbonate in NS 8.4% 1 ML Syringe IDERM PRN; Morphine 8 MG, EPINEPHrine 0.3 MG, Cefuroxime 750 MG, Ketorolac 30 MG, Sodium Chloride ... PRN; Ondansetron 4 MG/2 ML SDV IVPUSH PRN; Ondansetron 4 MG/2 ML SDV ONE; Pregabalin 25 MG Cap PO SCH; Propofol 200 MG/20 ML SDV ONE; Ropivacaine 0.5% 5 MG/ML 30 ML SDV ONE; Sodium Chloride 0.9% 10 ML Syringe FLUSH PRN; Triamcinolone Acetonide 40 MG/ML 1 ML SDV ONE; ceFAZolin 1 GM Vial ONE; ePHEDrine 50 MG/ML SDV ONE; fentaNYL 100 MCG/2 ML SDV IVPUSH PRN; fentaNYL 100 MCG/2 ML SDV ONE; oxyCODONE ER 10 MG TAB.ER PO SCH
[2021-05-11] MEDS: Vancomycin 1 GM SDV ONE ×2 (11:06→11:09)
--- NOTE | 2021-05-11 11:31 | PCM.POSTAN ---
POST ANESTHESIA ASSESSMENT - MENTAL STATUS Mental Status: Alert - VITAL SIGNS Vital Signs: Last Vital Signs Temp 36.8 C 05/11/21 08:40 Pulse 63 05/11/21 08:40 Resp 16 05/11/21 08:40 BP 125/81 05/11/21 08:40 Pulse Ox 98 05/11/21 08:40 - RESPIRATORY Respiratory Status: Respiratory Rate WNL, Airway Patent, O2 Saturation Stable - CARDIOVASCULAR CV Status: Pulse Rate WNL, Blood Pressure Stable - GASTROINTESTINAL GI Status: No Symptoms - PAIN Pain Score: 0 - POST OP HYDRATION Hydration Status: Adequate & Stable
--- NOTE | 2021-05-11 12:04 | PCM.PRNOTE ---
- Free Text/Narrative Note: Right selective femoral nerve block at the adductor canal for post-procedure pain control under US guidance requested by Dr. Brito. Date: 05-11-21 Time Out: 1144 Start: 1147 End: 1149 Chart reviewed. Consent signed. Questions answered. Appropriate monitors applied. Time out performed. Right mid-shaft femur identified with ultrasound, scanning medially of femur, the femoral artery in the adductor canal visualized, and the femoral nerve located laterally to the artery. The skin was prepped lateral to the ultrasound probe with chlorahexadine times two. The 21ga 4 insulated block needle was inserted under direct ultrasound guidance into the adductor canal. 25mL of 0.5% ropivacaine with 1:200,000 epinephrine was injected circumferentially around the nerve with intermittent negative aspiration noted. Patient tolerated the procedure well. Sterile technique noted along with sterile gloves, mask, and sterile probe cover. See picture on progress note and vital signs on nurses notes. Block completed in PACU. Jorge White CRNA
--- NOTE | 2021-05-11 12:12 | CR ---
Right knee: AP and crosstable lateral views of the right knee were obtained. Comparison: Prior right knee CT study of 05/02/21. Findings: Right knee prosthesis is seen. Patellar prosthesis is also noted. Components are aligned. Soft tissue air is seen. No underlying bony abnormality is otherwise seen. Impression: 1. Satisfactory postoperative radiographic appearance of recently placed right knee prostheses. Diagnostic code #2
--- NOTE | 2021-05-11 12:34 | PCM48HPAN ---
Post Anesthesia Note - EVALUATION WITHIN 48HRS OF ANESTHETIC Vital Signs in Normal Range: Yes Patient Participated in Evaluation: Yes Respiratory Function Stable: Yes Airway Patent: Yes Cardiovascular Function Stable: Yes Hydration Status Stable: Yes Pain Control Satisfactory: Yes Nausea and Vomiting Control Satisfactory: Yes Mental Status Recovered: Yes Vital Signs: Last Vital Signs Temp 36.8 C 05/11/21 08:40 Pulse 63 05/11/21 08:40 Resp 16 05/11/21 08:40 BP 125/81 05/11/21 08:40 Pulse Ox 98 05/11/21 08:40
[2021-05-11 15:03] VITALS: BP 124/80; PULSE 75
--- NOTE | 2021-05-23 19:08 | PCM.OPNOTE ---
- General Post-Op/Procedure Note Date of Surgery/Procedure: 05/11/21 Operative Procedure(s): right total knee arthroplasty with left knee corticosteroid injection Pre Op Diagnosis: bilateral knee osteoarthrosis Post-Op Diagnosis: Same Anesthesia Technique: Local, MAC, Spinal Primary Surgeon: Pollo Brito Anesthesia Provider: Jorge White Gristmiller: Rossana Liu Gristmiller: Keara Rondon EBL in mLs: 350 Complications: None Condition: Good Free Text/Narrative:: 09/28 9mm 29x9
--- NOTE | 2021-05-26 09:44 | OR ---
DATE OF OPERATION: 05/11/2021 SURGEON: Pollo Brito MD OPERATION PERFORMED: Right total knee arthroplasty with left knee corticosteroid injection. PREOPERATIVE DIAGNOSIS: Bilateral knee osteoarthrosis. POSTOPERATIVE DIAGNOSIS: Bilateral knee osteoarthrosis. ANESTHESIA: Local MAC with spinal. ANESTHESIA PROVIDER: Jorge White. ASSISTANTS: Rossana Liu PA-C and Keara Rondon LPN. ESTIMATED BLOOD LOSS: 350 mL. COMPLICATIONS: None. CONDITION: Stable. IMPLANTS: 1. Gen size 3 press-fit CR femur. 2. [place] size 3 press-fit tibial baseplate. 3. Gen size 3, 9 mm CS polyethylene insert. 4. Gen size 29 x 9 mm press-fit asymmetric patella. DESCRIPTION OF PROCEDURE: The patient was identified in the preop holding area. Proper site was marked and identified by the surgeon. The patient was taken back to the operating theater, where after adequate anesthesia, the patient's right lower extremity had a nonsterile tourniquet applied and then it was sterilely prepped and draped in the usual sterile fashion. OR time-out was performed. The patient received 2 g IV Ancef. Leg partida was then applied to the right lower extremity. At this time, the right lower extremity was exsanguinated. Tourniquet was insufflated to 250 mmHg. Standard anterior incision was made. Medial parapatellar arthrotomy was created. Deep fibers of the MCL were raised and anterior fat pad was resected. Attention was turned to the patella. Patella measured at 21, it was resected to a 13 for a 29 x 9 mm patella. Drill holes were then drilled. Attention was then turned to the femur. Two 4.0 Schanz pins were placed intra-incisionally on the femur for the Gen [employer] robotic array and then 2 more were placed on the tibia 3 fingerbreadths below the tibial tubercle. The [place] Awais robotic arrays were placed on both the femur and the tibia at this time as well as checkpoints on the femur and tibia. Hip center rotation was then obtained. The medial and lateral malleoli were marked as well as the checkpoints were marked for the [place] Awais robotic plan. The patient's knee was brought to full extension, varus and valgus stresses were applied, and then into 90 degrees of flexion. [place] Awais robotic plan for this patient was then undertaken to match the 19 mm flexion and extension gaps. A straight saw blade was then brought in. Tibial cut was completed as well as an anterior femoral cut, anterior chamfer cut, and posterior femoral cut. Saw blade was then switched out and the distal femoral cut as well as the posterior chamfer cut was completed. All bony fragments were removed. At this time, medial and lateral menisci were resected as well as any posterior osteophytes. Attention was turned to the tibia. The size 3 trial baseplate was placed on the tibia and a size 3 trial femur was placed on the femur. A size 3, 9 mm trial poly was placed. The patient's knee was brought to full extension and flexion. Varus and valgus stresses were applied, was found to be stable with no instability. No signs of liftoff or loosening on the tibial baseplate. At this time, femoral drill holes were drilled, and the tibia was stamped and drilled in proper rotation. All trial implants were then removed. The size 3 tibial baseplate was impacted into place, size 3 femoral component was impacted into place, and then a size 3, 9 mm CS polyethylene insert was impacted into place. A 29 x 9 mm press-fit patella was then press-fit into place. The tourniquet was deflated. Bleeders were cauterized. 1 L pulse lavage irrigation with Ancef was irrigated through the knee along with 400 mL Irrisept irrigation. Periarticular injection was completed. Topical tranexamic acid and vancomycin powder were applied. All checkpoints and pins were removed. At this point, a #2 barbed suture was used for closure of the medial parapatellar arthrotomy in flexion. 2-0 Vicryl and Stratafix were used for subcutaneous closure. Prineo was used for cutaneous closure. 3-0 nylons were used for closure of the pin holes on the tibia. The patient had a sterile soft dressing applied. The patient had an PRAVEENA wrap applied and was sent to PACU in stable condition. Left knee then underwent a corticosteroid injection with 2ml 40mg Kenalog and 4ml 0.25% Marcaine. The patient tolerated the procedure well. MMODAL /[id number] [facility]ITALChacorta
== END | disposition home or self-care (01) ==
LOC: JD.SDS 08:22
PROVIDERS: ATTEND Orthopaedic Surgery
DX: M17.0 Bilateral primary osteoarthritis of knee (principal); E03.9 Hypothyroidism, unspecified; E78.00 Pure hypercholesterolemia, unspecified; F33.0 Major depressive disorder, recurrent, mild; F51.01 Primary insomnia; Z79.899 Other long term (current) drug therapy; Z79.890 Hormone replacement therapy; Z91.018 Allergy to other foods; Z98.890 Other specified postprocedural states; Z87.891 Personal history of nicotine dependence
CPT/HCPCS: 01402; 73560-26-RT; 73560-RT; 97116-GP; 97161-GP; A9270-GY; C1713; C1776; J0171; J0690; J0697; J1885; J2270; J2405; J2704; J2795; J3010; J3301; J3370; J3490; J7120

== ENCOUNTER 2022-09-03 06:09 | Day surgery (SDC) | payer BC ==
[~2022-09-03 06:09] MED LIST changes: +Acetaminophen 325 MG Tab PO ONE; -Acetaminophen 325 MG Tab PO SCH; -Bupivacaine 0.25% 10 ML SDV ONE; -Lidocaine 1% 4 ML ONE; -Ondansetron 4 MG/2 ML SDV IVPUSH PRN; -Ondansetron 4 MG/2 ML SDV ONE; +Pregabalin 25 MG Cap PO ONE; -Pregabalin 25 MG Cap PO SCH; -Propofol 200 MG/20 ML SDV ONE; +Sodium Chloride 0.9% 10 ML Syringe FLUSH SCH; -Triamcinolone Acetonide 40 MG/ML 1 ML SDV ONE; -ceFAZolin 1 GM Vial ONE; -ePHEDrine 50 MG/ML SDV ONE; -fentaNYL 100 MCG/2 ML SDV IVPUSH PRN; -fentaNYL 100 MCG/2 ML SDV ONE; +oxyCODONE ER 10 MG TAB.ER PO ONE; -oxyCODONE ER 10 MG TAB.ER PO SCH
[2022-09-03] MEDS ORDERED: Vancomycin 1 GM SDV ONE (06:12)
[2022-09-03] MEDS ORDERED: Tranexamic Acid 1,000 MG/10 ML Vial ONE (06:12)
[2022-09-03] MEDS ORDERED: Propofol 200 MG/20 ML SDV ONE ×3 (06:19→08:13)
[2022-09-03] MEDS ORDERED: Lidocaine 1% 4 ML ONE (06:19)
[2022-09-03] MEDS ORDERED: Dexmedetomidine 200 MCG/2 ML SDV ONE (06:20)
[2022-09-03] MEDS ORDERED: Midazolam 1 MG/ML 2 ML SDV ONE (06:20)
[2022-09-03] MEDS ORDERED: Ketorolac 30 MG/ML SDV ONE (06:20)
[2022-09-03] MEDS ORDERED: ceFAZolin 2 GM Vial ONE (06:20)
[2022-09-03] MEDS ORDERED: fentaNYL 100 MCG/2 ML SDV ONE (06:20)
[2022-09-03] MEDS ORDERED: Ondansetron 4 MG/2 ML SDV ONE (06:20)
[2022-09-03] MEDS ORDERED: ePHEDrine 50 MG/ML SDV ONE (06:23)
[2022-09-03] MEDS ORDERED: Lactated Ringers 1,000 ML ONE (07:15)
[2022-09-03] MEDS ORDERED: Ondansetron 4 MG/2 ML SDV IVPUSH PRN (07:22)
[2022-09-03] MEDS ORDERED: fentaNYL 100 MCG/2 ML SDV IVPUSH PRN (07:22)
[2022-09-03] MEDS ORDERED: diphenhydrAMINE 50 MG/ML SDV IVPUSH PRN (07:22)
[2022-09-03] MEDS ORDERED: oxyCODONE 5 MG Tab PO ONE (10:12)
[2022-09-03 11:34] VITALS: BP 89/57
[2022-09-03 12:34] VITALS: PULSE 77
== END 2022-09-03 12:10 | disposition home or self-care (01) ==
LOC: JD.SDS 06:09
PROVIDERS: ATTEND Orthopaedic Surgery
DX: M17.12 Unilateral primary osteoarthritis, left knee (principal); D50.9 Iron deficiency anemia, unspecified; E03.9 Hypothyroidism, unspecified; F33.9 Major depressive disorder, recurrent, unspecified; K21.9 Gastro-esophageal reflux disease without esophagitis; G43.909 Migraine, unspecified, not intractable, without status migrainosus; E66.9 Obesity, unspecified; E78.00 Pure hypercholesterolemia, unspecified; Z79.899 Other long term (current) drug therapy; Z91.048 Other nonmedicinal substance allergy status; Z79.890 Hormone replacement therapy; Z98.890 Other specified postprocedural states; Z87.891 Personal history of nicotine dependence; Z68.29 Body mass index [BMI] 29.0-29.9, adult; Z98.84 Bariatric surgery status; Z86.16 Personal history of COVID-19; Z96.659 Presence of unspecified artificial knee joint
CPT/HCPCS: 0055T; 27447; 64447; 73560; 97116; 97161; A9270; C1713; C1776; J0171; J0690; J0697; J1885; J2250; J2270; J2405; J2704; J2795; J3010; J3370; J7120; 01402; J3490